=== PATIENT | female | born 1970 | race American Indian/Alaskan Native ===

== ENCOUNTER 2017-09-23 10:21 | Outpatient (CLI) | payer OTHER ==
--- NOTE | 2017-09-23 11:18 | Cat Scan Report ---
CT ABDOMEN PELVIS WITHOUT CONTRAST: HISTORY: Renal mass. COMPARISON: none. TECHNIQUE: Helical CT in 1.25mm intervals without IV contrast. Sagittal and coronal reconstructions. FINDINGS: Lung bases: Normal. Liver: Normal. Biliary system: Normal. Pancreas: Normal. Spleen: Normal. Kidneys/ureters/bladder: The kidneys are normal size and position. A 3.9 cm round hypodense lesion is identified in the inferior right kidney. Internal density measures 6 Hounsfield units. This is highly suggestive of a cyst. No convincing renal mass is identified although this is a noncontrast CT. The ureters and bladder are unremarkable. If further evaluation is needed CT with contrast or MR with contrast is recommended. Adrenal glands: Normal. Aorta: Normal. Intestines: Normal. Appendix: Normal. Pelvic viscera: Within normal limits. An IUD is in place. Ascites: None. Adenopathy: None. Musculoskeletal: Normal. IMPRESSION: 3.9 cm right renal cyst. See above.
--- NOTE | 2017-09-23 12:08 | XRay Report ---
RIGHT RIBS, 3 VIEWS: History: pain. Routine views of the rib cage demonstrate normal mineralization with no significant contour abnormalities, fractures or destructive lesions. PA view of the chest demonstrates no underlying cardiopulmonary abnormalities, fluid or pneumothorax. IMPRESSION: Unremarkable right rib series.
== END 2017-09-23 10:22 | disposition home or self-care (01) ==
LOC: CT 10:21
PROVIDERS: ATTEND Urology
DX: N28.1 Cyst of kidney, acquired (principal); N28.89 Other specified disorders of kidney and ureter
CPT/HCPCS: 74176